=== PATIENT | female | born 1955 | race Caucasian/White ===

== ENCOUNTER → 2016-09-17 | Outpatient (CLI) | payer BC ==
[~2016-09-17] MED LIST: ASPI81TA28 PO; DOXY100C76 PO; LORA-741 PO; LOSA100T65 PO; MULT-506 PO
[2016-09-17 18:06] LABS: BASO % 0.4 %; BASO ABS # 0.04 K/uL (0-0.2); COMPLETE YES; HEMATOCRIT 37.1 % (37-47); IG% 0.1 %; LYMPH % 27.7 %; LYMPH ABS # 2.47 K/uL (1.2-3.4); MEAN CELL VOLUME 87.1 fL (80-100); MEAN CORPUSCULAR HEMOGLOBIN 29.1 pg (25-34); MEAN CORPUSCULAR HGB CONC 33.4 g/dl (32-36); MEAN PLATELET VOLUME 9.7 fL (7.4-10.4); MONO % 6.7 %; NEUT % 64.1 %; PLATELET COUNT 333 K/uL (130-400); RED BLOOD COUNT 4.26 M/uL (4.2-5.4); WHITE BLOOD COUNT 8.93 K/uL (4.8-10.8)
[2016-09-17 19:09] LABS: BLOOD UREA NITROGEN 22 mg/dl (7-18); BUN/CREATININE RATIO 26.9 (10-20); CARBON DIOXIDE 25 mmol/L (21-32); CHLORIDE 112 mmol/L (98-107); GLUCOSE 106 mg/dl (70-99); SODIUM 145 mmol/L (136-145)
[2016-09-17 19:10] LABS: PHOSPHORUS 3.8 mg/dl (2.5-4.9)
== END | disposition home or self-care (01) ==
LOC: C.LABMFLN 10:59
PROVIDERS: ATTEND Family Medicine
DX: I10 Essential (primary) hypertension (principal); R20.9 Unspecified disturbances of skin sensation

== ENCOUNTER → 2016-11-05 | Outpatient (CLI) | payer BC | END | disposition home or self-care (01) | LOC: C.LABMFLN 10:27 | PROVIDERS: ATTEND Family Medicine | DX: R30.0 Dysuria (principal) ==

== ENCOUNTER → 2016-11-26 | Day surgery (SDC) | payer BC ==
[~2016-11-26] VITALS: Ht 160 cm; Wt 61.0 kg
[2016-11-26] VITALS (10 sets, daily range): BP systolic 120–150; BP diastolic 76–85; PULSE 64–109; TEMP 36.4–36.9; O2SAT 95–100; Ht 160 cm; Wt 61.0 kg
[~2016-11-26] MED LIST changes: +ACETAMINOPHEN 500 MG TAB PO ONE; +ACETAMINOPHEN 500 MG TAB PO PRN
--- NOTE | 2016-11-26 09:46 | Discharge Instructions ---
Discharge Instructions Procedure Procedure Date: Nov 26, 2016. Reason for visit: Abn Brain Mri, Facial Paresthesias W/Opening Press. Discharge Discharge Date: Nov 26, 2016. Discharge Diagnosis: facial paresthesias Instructions Activity Recommendations: 1 Day-May resume regular activity Return to School/Work: no limitations Recommended Home Diet: Resume Previous Diet Allergies Coded Allergies: Adhesives (Verified Allergy, Intermediate, Red, Raised, Rash that's itchy , 01/10/16) Penicillins (Verified Allergy, Mild, UNKNOWN. CHILDHOOD ALLERGY., 01/10/16) Uncoded Allergies: LIPTOR (Allergy, Severe, tingling leg cramps, 11/26/16) Chiqui Hendricks Recommendations: Call your doctor if: * Temperature above 101 degrees * Pain not relieved by pain medicine ordered * There is increased drainage or redness from any incision * You have any unanswered questions or concerns. Your Doctors Instructions noted above were prepared by provider Ady Garcia. Patient Signature Section: Patient Instructions Signature Page [employer] Patient (or Guardian) Signature/Date: I have read and understand the instructions given to me by my caregivers. Caregiver/RN/Doctor Signature/Date: The above-named patient and/or guardian has received patient instructions on this date. + Original Patient Signature Page (only) stays with chart. Please make copy for patient.
--- NOTE | 2016-11-26 10:01 | DIAGNOSTIC IMAGING REPORT ---
FLUOROSCOPICALLY GUIDED DIAGNOSTIC LUMBAR PUNCTURE CLINICAL HISTORY: facial paresthesias, abnormal brain mri, left arm paresthesias COMPARISON STUDY: No previous studies for comparison. FINDINGS: A timeout was performed. The risks of the procedure were explained the patient and informed consent was obtained. The patient was prepped and draped in sterile fashion. The skin was anesthetized 1% lidocaine. A lumbar puncture was performed at the L4-5 level with a 22-gauge spinal needle. 8 cc of clear CSF was withdrawn under gravity drip. The fluid was into 4 tubes. The fluid was sent for laboratory analysis as specified by the referring clinician. There were no immediate complications. 12 seconds of fluoroscopic time was utilized. A single fluoroscopic spot image was obtained. IMPRESSION: Successful fluoroscopically guided diagnostic lumbar puncture at the L4-5 level. 8 cc of clear CSF was withdrawn and sent for laboratory analysis. Electronically signed by: Ady Garcia M.D. 11/26/2016 10:00 AM Dictated Date/Time: 11/26/2016 9:58 AM
[2016-11-26 10:17] LABS: CSF APPEARANCE CLEAR; CSF COLOR COLORLESS; CSF XANTHOCHROMIC NO XANTHOCHROMIA
[2016-11-26 10:19] LABS: CSF CHEMISTRY TUBE # 1
[2016-11-26 10:22] LABS: CSF TOTAL PROTEIN 41.5 mg/dl (15.0-45.0)
[2016-12-02 22:41] LABS: ALBUMIN 3.6 g/dL (3.2-4.6); IGG CSF 2.7 mg/dL (0.8-7.7); IGG SERUM 1030 mg/dL (694-1618); LYME IGG CSF NO BANDS DETECTED; LYME IGM CSF NO BANDS DETECTED; MYELIN BASIC PROTEIN 663 <2.0 mcg/L (0.0-4.0)
== END | disposition home or self-care (01) ==
LOC: C.ACU 07:53
PROVIDERS: ATTEND Family Medicine
DX: R90.89 Other abnormal findings on diagnostic imaging of central nervous system (principal); R20.9 Unspecified disturbances of skin sensation; R20.2 Paresthesia of skin

== ENCOUNTER → 2017-05-18 | Outpatient (CLI) | payer BC ==
[~2017-05-18] MED LIST changes: -ACETAMINOPHEN 500 MG TAB PO ONE; -ACETAMINOPHEN 500 MG TAB PO PRN; -DOXY100C76 PO
== END | disposition home or self-care (01) ==
LOC: C.LABMFLN 09:47
PROVIDERS: ATTEND Family Medicine
DX: J02.9 Acute pharyngitis, unspecified (principal)

== ENCOUNTER → 2017-06-14 | Outpatient (CLI) | payer BC | END | disposition home or self-care (01) | LOC: C.LABMFLN 12:17 | PROVIDERS: ATTEND Physician Assistant | DX: J02.9 Acute pharyngitis, unspecified (principal) ==